=== PATIENT | female | born 1990 | race Two or more races ===

== ENCOUNTER 2017-04-13 18:12 | Inpatient (IN) | payer SELFPAY ==
[~2017-04-13] VITALS: Ht 167.6 cm; Wt 77.6 kg
[2017-04-13] MEDS ORDERED: ACETAMINOPHEN 500 MG TABLET PO ONE (21:30)
[2017-04-13] MEDS ORDERED: 0.9 % SODIUM CHLORIDE 10 ML DISP.SYRIN. IV PRN (21:45)
[2017-04-13] MEDS ORDERED: LIDOCAINE 1% PF 30 ML VIAL. INJ PRN (21:45)
[2017-04-13] MEDS ORDERED: ZOLPIDEM 5 MG TABLET. PO PRN (21:45)
[2017-04-13] MEDS ORDERED: OXYTOCIN 30 UNIT/500 ML PREMIX 500 ML IV PRN ×2 (21:45)
[2017-04-13] MEDS ORDERED: ONDANSETRON PF 4 MG/2 ML VIAL. IV PRN (21:45)
[2017-04-13] MEDS ORDERED: MAG HYDROX/ALUMINUM HYD/SIMETH 30 ML ORAL.SUSP PO PRN (21:45)
[2017-04-13] MEDS ORDERED: DOCUSATE SODIUM 283 MG/5 ML ENEMA. PR PRN (21:45)
[2017-04-13] MEDS ORDERED: CITRIC ACID/SODIUM CITRATE 30 ML SOLUTION. PO PRN (21:45)
[2017-04-13] MEDS ORDERED: ACETAMINOPHEN 325 MG TABLET. PO PRN (21:45)
[2017-04-13] MEDS ORDERED: fentaNYL PF VIAL 100 MCG/2 ML VIAL IV PRN ×2 (21:45)
[2017-04-13] MEDS ORDERED: TERBUTALINE 1 MG/ML VIAL. SQ PRN (21:45)
--- NOTE | 2017-04-13 23:03 | RAD ---
INDICATION: Patient in labor and delivery with evaluation of weight and position needed. COMPARISON: None. TECHNIQUE: Grayscale and color ultrasound images of the uterus FINDINGS: Intrauterine is identified with cardiac activity seen with heartbeat of 158. Placenta is fundal. Cephalic presentation at time of exam. Portion of the umbilical cord is seen at left lower quadrant. Cervix is closed. Amniotic fluid index is 3. Estimated weight 3059 g, 27th percentile. Estimated gestational age 37 weeks and 4 days with estimated due date of 04/30/2017. BPD 48th percentile Head circumference 18 percentile Abdominal circumference 2 percentile Femur length 48 percentile IMPRESSION: 1. Intrauterine is identified in the cephalic presentation with a positive heartbeat and estimated gestational age of 37 weeks and 4 days. 2. The amniotic fluid index is 3 which is low. Electronically signed by: Lloyd Bhandari MD (04/13/2017 11:00 PM)
[2017-04-13 23:32] LABS: BASO # 0.1 x10^3/uL (0.0-0.2); BASO % 1 % (0-3); EOS % 1 % (0-3); HEMATOCRIT 35.4 % (36.0-47.0); HEMOGLOBIN 11.4 g/dL (12.0-15.5); LYMPH # 1.2 x10^3/uL (1.0-4.8); LYMPH % 11 % (24-48); MEAN CORPUSCULAR HEMOGLOBIN 25 pg (25-35); MEAN CORPUSCULAR HGB CONC 32 g/dL (31-37); MEAN CORPUSCULAR VOLUME 77 fL (79-100); MONO % 7 % (0-9); NEUT % 81 % (31-73); PLATELET COUNT 210 x10^3/uL (140-400); WHITE BLOOD COUNT 11.3 x10^3/uL (4.0-11.0)
[2017-04-14] MEDS: IV RINGERS,LACTATED 1000ML 1,000 ML IV SCH ×2 (05:20→09:25)
--- NOTE | 2017-04-14 12:52 | PDOC1 ---
OB - History Hx of Present Care: Good Care Ultrasounds: Normal mid trimester US Obstetrical Complications: None Medical Complications: None Past Family/Social History * Past Medical, Surgical, Family and Obstetric Histories reviewed from chart. Rubella: Immune RPR/VDRL: Negative GBS Status: Negative HBsAG: Negative OB - Chief Complaint & HPI Date of Admission: Date of Admission: April 13, 2017 at 21:45 Chief Complaint/History : 3 Para: 2 EGA: 39 Reason for admission: active labor Admission Nurse Assessment Rev: Yes Problems: OB - Admission Exam Physical Exam Vitals: VS - Last 72 Hours, by Label Date Time Temp Pulse Resp B/P (MAP) Pulse Ox O2 Delivery O2 Flow Rate FiO2 04/14/17 12:32 20 Room Air HEENT: Normal Heart: Regular Rate Lungs: Clear Abdomen: Gravid, Non tender, Soft Extremities: Edema Reflexes: Normal Cervical Dilatation: 3cm Effacement: 75% Station: -3 Membranes: Intact Heart Rate: Normal Accelerations: Accelerations Present Decelerations: No decelerations Contractions on Admission: 6-10 Minutes Apart Intensity: Mild Text A: 39 wks IUP Active labor Oligohydramnios P: Admit for labor management. DANIEL CHILDRESS Jr, MD April 14, 2017 12:52
--- NOTE | 2017-04-14 13:27 | PDOC ---
VAGINAL DELIVERY DATE DATE: 04/14/17 TIME: 13:24 : 3 Para: 3 EGA: 39 VAGINAL DELIVERY: VTX VACCUM ASSISTED: No PLACENTA: Spontaneous 8/9 SEX: Female WEIGHT Weight [ 2865 gm] Nuchal Cord: Yes, Times 1 Amniotic Fluid: Clear PAIN: Natural EPISIOTOMY: No EXTENSION: No EBL 400 ml COMPLICATIONS none CONDITION pt. stable Signs of Intrauterine Infectio: Other (T max 100.2 degrees F. Responded well to tylenol.) Shoulder Dystocia: No Problems: DANIEL CHILDRESS Jr, MD April 14, 2017 13:27
[2017-04-14] MEDS ORDERED: MAGNESIUM HYDROXIDE 2,400 MG/30 ML ORAL.SUSP. PO PRN (13:30)
[2017-04-14] MEDS ORDERED: HYDROCORTISONE 1% TOPICAL OINTMENT 30GM TUBE. TP PRN (13:30)
[2017-04-14] MEDS ORDERED: PHENYLEPH/MINERAL OIL/PETROLAT RECTAL OINTMENT 28GM TUBE. RC PRN (13:30)
[2017-04-14] MEDS ORDERED: OXYTOCIN 30 UNIT/500 ML PREMIX 500 ML IV PRN (13:30)
[2017-04-14] MEDS ORDERED: diphenhydrAMINE HCL 25 MG CAPSULE PO PRN (13:30)
[2017-04-14] MEDS ORDERED: ACETAMINOPHEN 325 MG TABLET. PO PRN (13:30)
[2017-04-14] MEDS ORDERED: ZOLPIDEM 5 MG TABLET. PO PRN (13:30)
[2017-04-14] MEDS ORDERED: 0.9 % SODIUM CHLORIDE 10 ML DISP.SYRIN. IV PRN (13:30)
[2017-04-14] MEDS ORDERED: DOCUSATE SODIUM 100 MG CAPSULE. PO PRN (13:30)
[2017-04-14] MEDS ORDERED: BENZOCAINE 20% TOPICAL AEROSOL SPRAY 57GM CAN. TP PRN (13:30)
[2017-04-14] MEDS ORDERED: MMR per PROTOCOL. MC PRN (13:30)
[2017-04-14] MEDS ORDERED: oxyCODONE/APAP 5/325 1 TAB TABLET PO PRN (13:30)
[2017-04-14] MEDS ORDERED: SIMETHICONE 80 MG TAB.CHEW PO PRN (13:30)
[2017-04-14] MEDS ORDERED: MAG HYDROX/ALUMINUM HYD/SIMETH 30 ML ORAL.SUSP PO PRN (13:30)
[2017-04-14] MEDS: IBUPROFEN 800 MG TABLET. PO PRN (15:16)
[2017-04-14 16:10] VITALS: BP 110/69
[2017-04-14 17:15] VITALS: BP 104/65
[2017-04-14 21:25] VITALS: BP 117/76
[2017-04-14 23:30] VITALS: BP 90/59
[2017-04-15] MEDS: IBUPROFEN 800 MG TABLET. PO PRN (02:51)
[2017-04-15 05:07] LABS: BASO # 0.1 x10^3/uL (0.0-0.2); BASO % 1 % (0-3); EOS % 2 % (0-3); HEMATOCRIT 32.3 % (36.0-47.0); HEMOGLOBIN 10.5 g/dL (12.0-15.5); LYMPH # 2.1 x10^3/uL (1.0-4.8); LYMPH % 15 % (24-48); MEAN CORPUSCULAR HEMOGLOBIN 25 pg (25-35); MEAN CORPUSCULAR HGB CONC 33 g/dL (31-37); MEAN CORPUSCULAR VOLUME 77 fL (79-100); MONO % 7 % (0-9); NEUT % 76 % (31-73); PLATELET COUNT 205 x10^3/uL (140-400); RED CELL DISTRIBUTION WIDTH 18.6 % (11.5-14.5); WHITE BLOOD COUNT 13.7 x10^3/uL (4.0-11.0)
[2017-04-15 06:00] VITALS: BP 102/69
[2017-04-15 06:19] LABS: RPR REFLEX Non Reactive (Non Reactive)
[2017-04-15] MEDS ORDERED: FERROUS SULFATE 325 MG TABLET. PO SCH (08:00)
[2017-04-15] MEDS ORDERED: DIPHTH,PERTUSS(ACELL),TET TOX 0.5 ML DISP.SYRIN. VAX IM ONE (09:00)
[2017-04-15 11:20] VITALS: BP 103/71
[2017-04-15 16:48] VITALS: BP 106/72
[2017-04-15 21:10] VITALS: BP 108/73
[2017-04-16] MEDS: IBUPROFEN 800 MG TABLET. PO PRN (01:40)
[2017-04-16 06:33] VITALS: BP 108/78
--- NOTE | 2017-04-16 07:04 | PDOC3 ---
OB DISCHARGE SUMMARY DATE OF ADMISSION: 04/14/17 DATE OF DISCHARGE: 04/16/17 REASON FOR ADMISSION: Onset of labor PROCEDURES: None INTRAPARTUM PROCEDURES: Spontanous Vag Deliv OPERATIONS: None DISCHARGE DIAGNOSIS: Term Delivered DISCHARGE INFORMATION: Activity, Diet HOSPITAL COURSE Unremarkable CONDITION AT DISCHARGE Stable HEBER STEVENS MD Apr 16, 2017 07:04
[2017-04-16] MEDS ORDERED: NAPR500T3 PO (07:06)
[2017-04-16] MEDS ORDERED: HYDR-971 PO (07:06)
[2017-04-16 09:35] VITALS: BP 105/76
[2017-04-16 13:55] VITALS: BP 112/76
== END 2017-04-16 14:00 | disposition home or self-care (01) | DRG 775 ==
LOC: 3 SO LND 18:12 → OBSVTOIN 21:45 → 3 SO LND 04-14 16:10
PROVIDERS: ADMIT Obstetrics & Gynecology; ATTEND Obstetrics & Gynecology
PROC: 10E0XZZ Delivery of Products of Conception, External Approach (ICD-10-PCS; principal; 2017-04-14)
DX: O69.81X0 Labor and delivery complicated by cord around neck, without compression, not applicable or unspecified (principal); O41.03X0 Oligohydramnios, third trimester, not applicable or unspecified; Z3A.39 39 weeks gestation of pregnancy; Z37.0 Single live birth
CPT/HCPCS: 36415; 76815; 85027; 86593; 86900; 86901; 90715; G0378; G0379; J2590; J3010; J7120

== ENCOUNTER 2019-03-27 12:14 | Inpatient (IN) | payer MEDICAID, SELFPAY ==
[~2019-03-27] VITALS: Ht 162.6 cm; Wt 82.1 kg
[~2019-03-27 12:14] MED LIST: HYDR-3164 PO; NAPR-514 PO
[2019-03-27 12:50] VITALS: BP 112/60
[2019-03-27] MEDS ORDERED: CITRIC ACID/SODIUM CITRATE 30 ML SOLUTION. PO PRN (13:00)
[2019-03-27] MEDS ORDERED: IV RINGERS,LACTATED 1000ML 1,000 ML IV PRN (13:00)
[2019-03-27] MEDS ORDERED: TERBUTALINE 1 MG/ML VIAL. SQ PRN (13:00)
[2019-03-27] MEDS ORDERED: OXYTOCIN 30 UNIT/500 ML PREMIX 500 ML IV PRN ×3 (13:00→15:15)
[2019-03-27] MEDS ORDERED: fentaNYL PF VIAL 100 MCG/2 ML VIAL IV PRN (13:00)
[2019-03-27] MEDS ORDERED: IBUPROFEN 400 MG TABLET. PO PRN (13:00)
[2019-03-27] MEDS ORDERED: 0.9 % SODIUM CHLORIDE 10 ML DISP.SYRIN. IV PRN ×2 (13:00→15:15)
[2019-03-27] MEDS ORDERED: LIDOCAINE 1% PF 30 ML VIAL. INJ PRN (13:00)
[2019-03-27 13:20] LABS: BASO % 1 % (0-3); EOS # 0.1 x10^3/uL (0.0-0.7); EOS % 1 % (0-3); HEMATOCRIT 36.4 % (36.0-47.0); HEMOGLOBIN 11.8 g/dL (12.0-15.5); LYMPH # 1.2 x10^3/uL (1.0-4.8); LYMPH % 15 % (24-48); MEAN CORPUSCULAR HEMOGLOBIN 24 pg (25-35); MEAN CORPUSCULAR HGB CONC 32 g/dL (31-37); MEAN CORPUSCULAR VOLUME 75 fL (79-100); MONO # 0.5 x10^3/uL (0.0-1.1); MONO % 6 % (0-9); NEUT # 6.3 x10^3uL (1.8-7.7); NEUT % 78 % (31-73); PLATELET COUNT 246 x10^3/uL (140-400); RED BLOOD COUNT 4.83 x10^6/uL (3.50-5.40); RED CELL DISTRIBUTION WIDTH 17.3 % (11.5-14.5); WHITE BLOOD COUNT 8.1 x10^3/uL (4.0-11.0)
[2019-03-27 13:21] LABS: BILIRUBIN,URINE NEGATIVE (NEG); CLARITY,URINE CLEAR; COLOR,URINE YELLOW; NITRITE,URINE NEGATIVE (NEG); PH,URINE 7.5; PROTEIN,URINE NEGATIVE (NEG-TRACE); UROBILINOGEN,URINE 0.2 mg/dL (0.2 mg/dL)
[2019-03-27 13:29] LABS: BACTERIA,URINE FEW /HPF (0-FEW); RBC,URINE RARE /HPF (0-2); SQUAMOUS EPITHELIAL CELL,UR FEW /LPF; WBC,URINE RARE /HPF (0-4)
--- NOTE | 2019-03-27 15:14 | PDOC1 ---
OB - History Hx of Present Care: Good Care Ultrasounds: Normal mid trimester US Obstetrical Complications: None Medical Complications: None Past Family/Social History * Past Medical, Surgical, Family and Obstetric Histories reviewed from chart. Rubella: Immune RPR/VDRL: Negative GBS Status: Negative HBsAG: Negative OB - Chief Complaint & HPI Date of Admission: Date of Admission: March 27, 2019 at 12:14 Chief Complaint/History : 4 Para: 3 EGA: 39 Reason for admission: active labor Admission Nurse Assessment Rev: Yes OB - Admission Exam Physical Exam Vitals: VS - Last 72 Hours, by Label Date Time Temp Pulse Resp B/P (MAP) Pulse Ox O2 Delivery O2 Flow Rate FiO2 03/27/19 12:50 97.7 90 20 112/60 (77) 98 97.7 HEENT: Normal Heart: Regular Rate Lungs: Clear Abdomen: Gravid, Non tender, Soft Extremities: Edema Reflexes: Normal Cervical Dilatation: 9cm Effacement: 100% Station: 0 Membranes: Intact Heart Rate: Normal Accelerations: Accelerations Present Decelerations: No decelerations Contractions on Admission: < 5 Minutes Apart Intensity: Firm Text A: 39 wks IUP Active labor P: Admit labor management. DANIEL CHILDRESS Jr, MD March 27, 2019 15:14
[2019-03-27] MEDS ORDERED: diphenhydrAMINE HCL 25 MG CAPSULE PO PRN (15:15)
[2019-03-27] MEDS ORDERED: SIMETHICONE 80 MG TAB.CHEW PO PRN (15:15)
[2019-03-27] MEDS ORDERED: ZOLPIDEM 5 MG TABLET. PO PRN (15:15)
[2019-03-27] MEDS ORDERED: MMR per PROTOCOL. MC PRN (15:15)
[2019-03-27] MEDS ORDERED: oxyCODONE/APAP 5/325 1 TAB TABLET PO PRN (15:15)
[2019-03-27] MEDS ORDERED: MAG HYDROX/ALUMINUM HYD/SIMETH 30 ML ORAL.SUSP PO PRN (15:15)
[2019-03-27] MEDS ORDERED: HYDROCORTISONE 1% TOPICAL OINTMENT 30GM TUBE. TP PRN (15:15)
[2019-03-27] MEDS ORDERED: ACETAMINOPHEN 325 MG TABLET. PO PRN (15:15)
[2019-03-27] MEDS ORDERED: PHENYLEPH/MINERAL OIL/PETROLAT RECTAL OINTMENT 28GM TUBE. RC PRN (15:15)
[2019-03-27] MEDS ORDERED: BENZOCAINE 20% TOPICAL AEROSOL SPRAY 57GM CAN. TP PRN (15:15)
[2019-03-27] MEDS ORDERED: MAGNESIUM HYDROXIDE 2,400 MG/30 ML ORAL.SUSP. PO PRN (15:15)
--- NOTE | 2019-03-27 15:15 | PDOC ---
VAGINAL DELIVERY DATE DATE: 03/27/19 TIME: 15:14 : 4 Para: 4 EGA: 39 VAGINAL DELIVERY: VTX VACCUM ASSISTED: No PLACENTA: Spontaneous 8/9 SEX: Male WEIGHT Weight [ 3340 gm] Nuchal Cord: No Amniotic Fluid: Clear PAIN: Natural EPISIOTOMY: No EXTENSION: No EBL 300 ml COMPLICATIONS none CONDITION pt. stable Signs of Intrauterine Infectio: None Shoulder Dystocia: No DANIEL CHILDRESS Jr, MD March 27, 2019 15:15
[2019-03-27] MEDS: IBUPROFEN 400 MG TABLET. PO PRN (16:23)
[2019-03-27 18:03] VITALS: BP 110/6
[2019-03-27] MEDS: DOCUSATE SODIUM 100 MG CAPSULE. PO PRN (21:50)
[2019-03-27 21:57] VITALS: BP 92/63
[2019-03-28 02:05] VITALS: BP 103/65
[2019-03-28] MEDS: IBUPROFEN 400 MG TABLET. PO PRN ×2 (02:17→10:56)
[2019-03-28 04:37] LABS: BASO % 1 % (0-3); EOS # 0.2 x10^3/uL (0.0-0.7); EOS % 2 % (0-3); HEMATOCRIT 32.2 % (36.0-47.0); HEMOGLOBIN 10.6 g/dL (12.0-15.5); LYMPH % 20 % (24-48); MEAN CORPUSCULAR HEMOGLOBIN 25 pg (25-35); MEAN CORPUSCULAR HGB CONC 33 g/dL (31-37); MEAN CORPUSCULAR VOLUME 76 fL (79-100); MONO # 0.7 x10^3/uL (0.0-1.1); MONO % 7 % (0-9); NEUT # 7.2 x10^3uL (1.8-7.7); NEUT % 72 % (31-73); PLATELET COUNT 216 x10^3/uL (140-400); RED BLOOD COUNT 4.25 x10^6/uL (3.50-5.40); RED CELL DISTRIBUTION WIDTH 17.5 % (11.5-14.5); WHITE BLOOD COUNT 10.1 x10^3/uL (4.0-11.0)
[2019-03-28 05:49] VITALS: BP 98/68
[2019-03-28] MEDS ORDERED: FERROUS SULFATE 325 MG TABLET. PO SCH (08:00)
[2019-03-28] MEDS: DOCUSATE SODIUM 100 MG CAPSULE. PO PRN (10:55)
[2019-03-28 11:09] VITALS: BP 107/67
--- NOTE | 2019-03-28 13:13 | PDOC ---
OB Progress Note Date of Service 03/28/19 Time of Evaluation 1315 Notes Pt. feeling well. No complaints. Lab Laboratory Tests Test 03/27/19 13:00 03/28/19 03:10 White Blood Count 8.1 x10^3/uL (4.0-11.0) 10.1 x10^3/uL (4.0-11.0) Red Blood Count 4.83 x10^6/uL (3.50-5.40) 4.25 x10^6/uL (3.50-5.40) Hemoglobin 11.8 g/dL (12.0-15.5) 10.6 g/dL (12.0-15.5) Hematocrit 36.4 % (36.0-47.0) 32.2 % (36.0-47.0) Mean Corpuscular Volume 75 fL (79-100) 76 fL (79-100) Mean Corpuscular Hemoglobin 24 pg (25-35) 25 pg (25-35) Mean Corpuscular Hemoglobin Concent 32 g/dL (31-37) 33 g/dL (31-37) Red Cell Distribution Width 17.3 % (11.5-14.5) 17.5 % (11.5-14.5) Platelet Count 246 x10^3/uL (140-400) 216 x10^3/uL (140-400) Neutrophils (%) (Auto) 78 % (31-73) 72 % (31-73) Lymphocytes (%) (Auto) 15 % (24-48) 20 % (24-48) Monocytes (%) (Auto) 6 % (0-9) 7 % (0-9) Eosinophils (%) (Auto) 1 % (0-3) 2 % (0-3) Basophils (%) (Auto) 1 % (0-3) 1 % (0-3) Neutrophils # (Auto) 6.3 x10^3uL (1.8-7.7) 7.2 x10^3uL (1.8-7.7) Lymphocytes # (Auto) 1.2 x10^3/uL (1.0-4.8) 2.0 x10^3/uL (1.0-4.8) Monocytes # (Auto) 0.5 x10^3/uL (0.0-1.1) 0.7 x10^3/uL (0.0-1.1) Eosinophils # (Auto) 0.1 x10^3/uL (0.0-0.7) 0.2 x10^3/uL (0.0-0.7) Basophils # (Auto) 0.0 x10^3/uL (0.0-0.2) 0.0 x10^3/uL (0.0-0.2) Urine Collection Type Unknown Urine Color Yellow Urine Clarity Clear Urine pH 7.5 Urine Specific [place] 1.010 Urine Protein Negative mg/dL (NEG-TRACE) Urine Glucose (UA) Negative mg/dL (NEG) Urine Ketones (Stick) Negative mg/dL (NEG) Urine Blood Negative (NEG) Urine Nitrite Negative (NEG) Urine Bilirubin Negative (NEG) Urine Urobilinogen Dipstick 0.2 mg/dL (0.2 mg/dL) Urine Leukocyte Esterase Negative (NEG) Urine RBC Rare /HPF (0-2) Urine WBC Rare /HPF (0-4) Urine Squamous Epithelial Cells Few /LPF Urine Bacteria Few /HPF (0-FEW) Treponema pallidum Antibody Nonreactive (Nonreactive) Laboratory Tests Test 03/28/19 03:10 White Blood Count 10.1 x10^3/uL (4.0-11.0) Red Blood Count 4.25 x10^6/uL (3.50-5.40) Hemoglobin 10.6 g/dL (12.0-15.5) Hematocrit 32.2 % (36.0-47.0) Mean Corpuscular Volume 76 fL (79-100) Mean Corpuscular Hemoglobin 25 pg (25-35) Mean Corpuscular Hemoglobin Concent 33 g/dL (31-37) Red Cell Distribution Width 17.5 % (11.5-14.5) Platelet Count 216 x10^3/uL (140-400) Neutrophils (%) (Auto) 72 % (31-73) Lymphocytes (%) (Auto) 20 % (24-48) Monocytes (%) (Auto) 7 % (0-9) Eosinophils (%) (Auto) 2 % (0-3) Basophils (%) (Auto) 1 % (0-3) Neutrophils # (Auto) 7.2 x10^3uL (1.8-7.7) Lymphocytes # (Auto) 2.0 x10^3/uL (1.0-4.8) Monocytes # (Auto) 0.7 x10^3/uL (0.0-1.1) Eosinophils # (Auto) 0.2 x10^3/uL (0.0-0.7) Basophils # (Auto) 0.0 x10^3/uL (0.0-0.2) Medications Current Medications Sodium Chloride (Normal Saline Flush) 3 ml QSHIFT PRN IV AFTER MEDS AND BLOOD DRAWS; Start 03/27/19 at 13:00; Stop 03/27/19 at 18:09; Status DC Ringer's Solution 1,000 ml @ 125 mls/hr Q8H PRN IV PER PROTOCOL Last administered on 03/27/19at 13:05; Start 03/27/19 at 13:00; Stop 03/27/19 at 18:09; Status DC Fentanyl Citrate (Fentanyl 2ml Vial) 100 mcg PRN Q30MIN PRN IV Severe pain; Start 03/27/19 at 13:00; Stop 03/27/19 at 18:09; Status DC Citric Acid/ Sodium Citrate (Bicitra) 30 ml 1X PRN PRN PO DYSPEPSIA; Start 03/27/19 at 13:00; Stop 03/28/19 at 12:59; Status DC Terbutaline Sulfate (Brethine) 0.25 mg 1X PRN PRN SQ SEE COMMENTS; Start 03/27/19 at 13:00; Stop 03/27/19 at 18:09; Status DC Lidocaine HCl (Xylocaine 1% Pf 30ml Vial) 30 ml 1X PRN PRN INJ SEE COMMENTS; Start 03/27/19 at 13:00; Stop 03/27/19 at 18:09; Status DC Oxytocin/Sodium Chloride 500 ml @ 0 mls/hr CONT PRN IV SEE I/O RECORD; Start 03/27/19 at 13:00; Stop 03/27/19 at 18:09; Status DC Oxytocin/Sodium Chloride 500 ml @ 0 mls/hr CONT PRN PRN IV Post delivery bleeding Last administered on 03/27/19at 15:07; Start 03/27/19 at 13:00; Stop 03/27/19 at 18:09; Status DC Ibuprofen (Motrin) 800 mg PRN Q6HRS PRN PO PAIN; Start 03/27/19 at 13:00; Stop 03/27/19 at 15:19; Status DC Sodium Chloride (Normal Saline Flush) 10 ml QSHIFT PRN IV AFTER MEDS AND BLOOD DRAWS; Start 03/27/19 at 15:15; Stop 03/27/19 at 18:09; Status DC Oxytocin/Sodium Chloride 500 ml @ 62.5 mls/hr CONT PRN IV SEE I/O RECORD; Start 03/27/19 at 15:15; Stop 03/27/19 at 18:09; Status DC Acetaminophen (Tylenol) 650 mg PRN Q6HRS PRN PO MILD PAIN / TEMP; Start 03/27/19 at 15:15 Ibuprofen (Motrin) 800 mg PRN Q8HRS PRN PO INFLAMMATION/PAIN PREVENTION Last administered on 03/28/19at 10:56; Start 03/27/19 at 15:15 Docusate Sodium (Colace) 100 mg PRN BID PRN PO CONSTIPATION Last administered on 03/28/19at 10:55; Start 03/27/19 at 15:15 Magnesium Hydroxide (Milk Of Magnesia) 2,400 mg PRN DAILY PRN PO CONSTIPATION; Start 03/27/19 at 15:15 Al Hydroxide/Mg Hydroxide (Mylanta Plus Xs) 30 ml PRN Q4HRS PRN PO HEARTBURN / GAS; Start 03/27/19 at 15:15 Simethicone (Gas-X) 80 mg PRN AFTMEALHC PRN PO GAS / BLOATING; Start 03/27/19 at 15:15 Diphenhydramine HCl (Benadryl) 25 mg PRN Q6HRS PRN PO ITCHING; Start 03/27/19 at 15:15 Benzocaine (Americaine) 1 spray PRN QID PRN TP TOPICAL PAIN Last administered on 03/27/19at 16:24; Start 03/27/19 at 15:15 Phenyleph/Shark Oil/Min Oil/Petrol (Preparation H) 1 victoria PRN QID PRN RC RECTAL PAIN; Start 03/27/19 at 15:15 Hydrocortisone (Cortaid) 1 victoria PRN QID PRN TP PERINEAL PAIN; Start 03/27/19 at 15:15 Ferrous Sulfate (Feosol) 325 mg BIDWMEALS PO ; Start 03/28/19 at 08:00; Stop 03/28/19 at 08:00; Status DC Zolpidem Tartrate (Ambien) 5 mg PRN QHS PRN PO INSOMNIA, MAY REPEAT X1; Start 03/27/19 at 15:15 Info (Do NOT chart on this placeholder) 1 ea 1X PRN PRN MC SEE COMMENTS; Start 03/27/19 at 15:15 Info (Do NOT chart on this placeholder) 1 ea 1X PRN PRN MC SEE COMMENTS; Start 03/27/19 at 15:15 Oxycodone/ Acetaminophen (Percocet 5/325) 2 tab PRN Q4HRS PRN PO MODERATE PAIN, SEVERE PAIN; Start 03/27/19 at 15:15 Active Scripts Active Naproxen 500 Mg Tablet 1 Tab PO BID [place] 5-325 Tablet (Acetaminophen/Hydrocodone Bitart) 1 Each Tablet 1 Tab PO PRN Q6HRS PRN Assessment PPD#1 s/p Plan of Care: Continue current Tx, Mgmt DANIEL CHILDRESS Jr, MD March 28, 2019 13:13
[2019-03-28 18:49] VITALS: BP 108/73
[2019-03-28 22:31] VITALS: BP 107/70
[2019-03-29] MEDS: IBUPROFEN 400 MG TABLET. PO PRN (02:27)
[2019-03-29 06:21] VITALS: BP 107/70
[2019-03-29 10:10] VITALS: BP 109/62
--- NOTE | 2019-03-29 12:52 | PDOC3 ---
OB DISCHARGE SUMMARY DATE OF ADMISSION: 03/27/19 DATE OF DISCHARGE: 03/29/19 REASON FOR ADMISSION: Onset of labor INTRAPARTUM PROCEDURES: Spontanous Vag Deliv DISCHARGE DIAGNOSIS: Term Delivered DISCHARGE INFORMATION: Activity (ad randy), Diet (regular), Instructions (pelvic rest x 6 wks) HOSPITAL COURSE Term gestation delivered vaginally without complications. DANIEL CHILDRESS Jr, MD March 29, 2019 12:52
[2019-03-29] MEDS ORDERED: IBUP-1027 PO (12:54)
--- NOTE | 2019-03-29 12:55 | DISCH ---
DISCHARGE INSTRUCTIONS Condition on Discharge Condition on Discharge: Stable Activity After Discharge Activity Instructions for Disc: Activity as tolerated Lifting Instructions after Dis: No heavy lifting, No pulling or pushing Driving Instructions after Dis: Do not drive today Diet after Discharge Diet after Discharge: Regular Contacting the DRPaulette after DC Call your doctor for: Concerns you may have Follow-Up Follow up with: Dr. Nash in 6 wks Treatment/Equipment after DC Adaptive Equipment Issued: None DANIEL NASH Jr, MD March 29, 2019 12:55
[2019-03-29 13:57] VITALS: BP 109/75
--- NOTE | 2019-03-29 14:10 | NUR ---
Copy of discharge care instructions provided to Pt. in Turkish per her request. Pt. denies questions or needs at this time. Pt. escorted via WC by Audra Saleh RN to vehicle with NB in car seat, family, and belongings present. Pt. discharged home with NB. Dennis Yip RN
== END 2019-03-29 14:10 | disposition home or self-care (01) | DRG 807 ==
LOC: OBSVTOIN 12:14 → 3 SO LND 12:14 → 3 NORTH 17:36
PROVIDERS: ADMIT Obstetrics & Gynecology; ATTEND Obstetrics & Gynecology
PROC: 10E0XZZ Delivery of Products of Conception, External Approach (ICD-10-PCS; principal; 2019-03-27)
DX: O80 Encounter for full-term uncomplicated delivery (principal); Z37.0 Single live birth; Z3A.39 39 weeks gestation of pregnancy
CPT/HCPCS: 36415; 81001; 85025; 86592; 86850; 86900; 86901; J2590; J7120